=== PATIENT | female | born 1985 | race Caucasian/White ===

== ENCOUNTER 2018-05-14 18:38 | Emergency (ER) | payer OTHER ==
[2018-05-14] MEDS ORDERED: TRAMADOL HCL 50 MG TABLET PO ONE (20:53)
--- NOTE | 2018-05-14 21:20 | ER Document Report ---
Addendum entered and electronically signed by MARYCARMEN SWIFT PA-C 05/14/18 22:34: Discharge - Discharge Clinical Impression: Strain of knee, bilateral Condition: Good Disposition: HOME, SELF-CARE Instructions: Muscle Strain ([facility]) Prescriptions: Tramadol HCl/Acetaminophen [Ultracet 37.5 mg/325 mg Tablet] 1 each PO Q6HP PRN #12 tablet PRN Reason: Forms: Return to Work Referrals: WILBERT DURAN PA-C [Primary Care Provider] - Follow up as needed LEIGH ANN RICARDO DO [ACTIVE STAFF] - Follow up in 1 week Original Note: ED General - General Chief Complaint: Fall Injury Stated Complaint: FALL/KNEE PAIN Time Seen by Provider: 05/14/18 20:37 Mode of Arrival: Ambulatory Information source: Patient TRAVEL OUTSIDE OF THE [place] IN LAST 30 DAYS: No - HPI Patient complains to provider of: Bilateral knee pain and injury Onset: Other - 530 this afternoon Onset/Duration: Sudden Quality of pain: Sharp Severity: Severe Context: Slipped on a wet surface Associated symptoms: None Exacerbated by: Walking Relieved by: Remaining still Similar symptoms previously: No Recently seen / treated by doctor: No Notes: 32-year-old [place] Twisted both knees. Claims she cannot bear weight. No other injuries - Related Data Allergies/Adverse Reactions: No Known Allergies Allergy (Unverified 05/14/18 18:42) Past Medical History - General Information source: Patient - Social History Smoking Status: Never Smoker Frequency of alcohol use: Occasional Drug Abuse: None Family History: Reviewed & Not Pertinent Patient has suicidal ideation: No Patient has homicidal ideation: No Renal/ Medical History: Denies: Hx Peritoneal Dialysis Psychiatric Medical History: Reports: Hx Depression Review of Systems - Review of Systems Notes: Constitutional: No fevers. No chills. EENT: Atraumatic Cardiovascular: No chest pain. No palpitations. Respiratory: No cough. No shortness of breath. No respiratory distress. Gastrointestinal: No abdominal pain. No nausea, vomiting, or diarrhea. Genitourinary: Atraumatic. No lesions. No pain. No discharge. Musculoskeletal: bILateral knee pain Skin: No rash or lesions. Lymphatic: No swollen lymph nodes. Neurologic: No headache. No syncope. Psychiatric: No suicidal or homicidal ideation. Physical Exam - Vital signs Vitals: Temp Pulse Resp BP Pulse Ox 98.8 F 111 H 16 136/97 H 100 05/14/18 19:06 05/14/18 19:06 05/14/18 19:06 05/14/18 19:06 05/14/18 19:06 - Notes Notes: General: Well-developed, well-nourished. In no acute distress. Non-toxic appearing. Cardiac: Well-perfused. Regular rate and rhythm. No murmurs, rubs, or gallops. Pulmonary: No respiratory distress. No cyanosis. Bilateral lung fiels are clear to auscultation. Abdominal: Non-distended. Non-rigid. Bowels sounds are present in all four quadrants. No guarding or rebound. HEENT: Head is atraumatic. Conjunctivae not reddened. No tearing. PERRL. EOMI. Orbits atraumatic. No periorbital swelling or erythema. Oropharynx is without erythema, swelling, or exudates. Neck: Supple. No adenopathy. No meningismus. Dermatologic: Warm with good turgor. No rash. Atraumatic. Chest: Atraumatic. No chest wall tenderness to palpation. Musculoskeletal: Bilateral knees are tender to palpation. Normal range of motion. No ligamentous laxity. No evidence of trauma. No ecchymosis.. DrAWER signs are negative. Genitourinary: Examination deferred Neurologic: No gross neurologic deficits. Psychiatric: Normal mood. Course - Re-evaluation Re-evalutation: 05/14/18 21:20 Suspect soft tissue injury. We will check plain films. 05/14/18 22:01 X-rays are negative. Will discharge home with knee strain instructions - Vital Signs Vital signs: Temp Pulse Resp BP Pulse Ox 98.8 F 111 H 16 136/97 H 100 05/14/18 19:06 05/14/18 19:06 05/14/18 19:06 05/14/18 19:06 05/14/18 19:06 Discharge - Discharge Clinical Impression: Strain of knee, bilateral Condition: Good Disposition: HOME, SELF-CARE Instructions: Muscle Strain ([facility]) Prescriptions: Tramadol HCl/Acetaminophen [Ultracet 37.5 mg/325 mg Tablet] 1 each PO Q6HP PRN #12 tablet PRN Reason: Referrals: WILBERT DURAN PA-C [Primary Care Provider] - Follow up as needed LEIGH ANN RICARDO DO [ACTIVE STAFF] - Follow up in 1 week
--- NOTE | 2018-05-14 21:49 | RADIOLOGY REPORT (SQ) ---
EXAM DESCRIPTION: XR KNEE 4 OR MORE VIEWS COMPLETED DATE/TME: 05/14/2018 00:00 CLINICAL HISTORY: 32 years, Female, fall COMPARISON: None. NUMBER OF VIEWS: 4 TECHNIQUE: 4 views right knee LIMITATIONS: None. FINDINGS: Negative for fracture or dislocation. Soft tissues are unremarkable IMPRESSION: Negative exam copyright 2010 [employer]- All Rights Reserved
--- NOTE | 2018-05-14 21:50 | RADIOLOGY REPORT (SQ) ---
EXAM DESCRIPTION: XR KNEE 4 OR MORE VIEWS COMPLETED DATE/TME: 05/14/2018 00:00 CLINICAL HISTORY: 32 years, Female, fall COMPARISON: None. NUMBER OF VIEWS: 4 TECHNIQUE: 4 view left knee LIMITATIONS: None. FINDINGS: Negative for acute fracture or dislocation. Ovoid calcification in the medial soft tissues of the distal thigh may reflect old trauma. No evidence for joint effusion IMPRESSION: Negative for acute abnormality copyright 2010 [employer]- All Rights Reserved
[2018-05-14 22:45] VITALS: BP 131/87
== END 2018-05-14 22:44 | disposition home or self-care (01) ==
LOC: ER 18:38
DX: S83.92XA Sprain of unspecified site of left knee, initial encounter (principal); S83.91XA Sprain of unspecified site of right knee, initial encounter; M25.561 Pain in right knee; M25.562 Pain in left knee; W01.0XXA Fall on same level from slipping, tripping and stumbling without subsequent striking against object, initial encounter; Y92.89 Other specified places as the place of occurrence of the external cause
CPT/HCPCS: 99283